=== PATIENT | male | born 1960 | race Caucasian/White ===

== ENCOUNTER 2024-07-14 07:31 | Emergency (ER) | payer OTHER ==
[2024-07-14 07:45] VITALS: BP 154/98; O2SAT 98
--- NOTE | 2024-07-14 07:53 | ED Physician Documentation ---
History of Present Illness - Stated complaint Stated Complaint: RT LWR LEG LAC - Chief complaint Chief Complaint: Ext Problem - History obtained from History obtained from: Patient - History of Present Illness Timing: How many days ago (2) Pain level max: 0 Pain level now: 0 - Additonal information Additional information: Patient is a 64-year-old male who presents to the emergency department stating that a neon light broke on Monday night, 2 days ago, states that it caused a laceration to the right leg. He states he bandaged the area. He has been changing the bandage at home. He states his tetanus shot is up-to-date. No bleeding. Not on blood thinners. No redness, swelling or drainage. Nothing makes it better or worse. Review of Systems Constitutional: denies: Fever PD PAST MEDICAL HISTORY - Past Medical History Past Medical History: Yes Cardiovascular: High cholesterol, Other GI: GERD Psych: Depression, Anxiety Other Past Medical History: ascending aorta is enlarged, prostate cancer - Past Surgical History Past Surgical History: No - Allergies Allergies/Adverse Reactions: Allergies Allergy/AdvReac Type Severity Reaction Status Date / Time Penicillins Allergy Hives Verified 07/14/24 07:46 - Social History Does the pt smoke?: No Smoking Status: Never smoker Does the pt drink ETOH?: Yes Does the pt have substance abuse?: No PD ED PE NORMAL - Vitals Vital signs reviewed: Yes - General General: Alert and oriented X 3, No acute distress - HEENT HEENT: Moist mucous membranes - Derm Derm: Warm and dry - Extremities Extremities: Other (Right lower extremity - There is a 5 cm linear laceration to the right lower leg, mid calf, lateral anterior aspect. Neurovascularly intact. Mild gaping.) - Neuro Neuro: Alert and oriented X 3 Results - Vitals Vitals: Vital Signs - 24 hr 07/14/24 07:36 Temperature 36.0 C L Heart Rate 66 Respiratory 18 Rate Blood Pressure 154/98 H O2 Saturation 98 Oxygen O2 Source Room air PD Medical Decision Making - ED course Complexity details: considered differential, d/w patient ED course: Patient with a 2-day-old laceration to the right lower extremity. Discussed risk of infection with closure. It is not deep, but does have mild gaping. Discussed that this will heal on its own and given the high risk of infection if we do a closure now, could consider delayed closure later. Mepitel was placed over the area. A clean bandage was then applied as well. Wound care instructions given at bedside. Patient will follow-up with the walk-in clinic for a wound check in about a week. Tetanus shot is up-to-date. Patient counseled regarding signs and symptoms for which I believe and urgent re-evaluation would be necessary. Patient with good understanding of and agreement to plan and is comfortable going home at this time This document was made in part using voice recognition software. While efforts are made to proofread this document, sound alike and grammatical errors may occur. Departure - Departure Disposition: Home, Self Care Clinical Impression: Leg laceration Qualifiers: Encounter type: initial encounter Laterality: right Qualified Code(s): S81.811A - Laceration without foreign body, right lower leg, initial encounter Condition: Good Instructions: ED Laceration All Follow-Up: [facility] [Provider Group] Primary[facility] [place] [Provider Group] Comments: Your wound was bandaged today. As we discussed the length of time since the injury puts this at high risk for infection if he were to close it. Therefore we will allow this to heal on its own, this will create a scar on your leg. The Mepitel can stay in place for the next 1 week. You can change the outer b andages as needed. Return if you notice redness, swelling or drainage from the wound. You can follow-up with the [place] walk-in clinic as well for a wound check in about a week.
== END 2024-07-14 08:07 | disposition home or self-care (01) ==
LOC: EDSEX → ED 07:31
DX: S81.811A Laceration without foreign body, right lower leg, initial encounter (principal); W25.XXXA Contact with sharp glass, initial encounter
CPT/HCPCS: 99282; 99283